=== PATIENT | male | born 1965 | race Caucasian/White ===

== ENCOUNTER → 2018-05-04 | Outpatient (CLI) | payer BC ==
--- NOTE | 2018-05-04 17:10 | KCIC ---
CT study of the maxillofacial bones without contrast Clinical indications: Acute recurrent sinusitis. Unable to breathe. Patient has been on antibiotics and steroids. TECHNIQUE: Noncontrast helical CT scanning of the paranasal sinuses was performed. Multiplanar 2-D reconstructions were generated. PQRS compliance Statement One or more of the following individualized dose reduction techniques were utilized for this study: 1. Automated exposure control 2. Adjustment of the mA and/or kV according to patient size 3. Use of iterative reconstruction technique FINDINGS: The maxillary and sphenoid and frontal and left ethmoid sinuses are clear. There is opacification of a solitary posterior right ethmoid air cell measuring 1.4 cm. No air-fluid levels are evident. No osteolytic process is seen. The infundibular canal is patent on both sides. There is moderate congestion of the middle and inferior turbinates on the left side and mild congestion of the middle and inferior turbinates on the right side. No polyps or soft tissue masses of the nasal passageway are seen. The adenoids are not abnormally thickened. IMPRESSION: Opacification of a solitary ethmoid air cell on the right side measuring 1.4 cm. No sinusitis is evident otherwise. Electronically signed by: Byron Lakhani MD (05/04/2018 5:07 PM) [id number]
== END | disposition home or self-care (01) ==
LOC: KCIC CT 11:09
PROVIDERS: ATTEND Otolaryngology
DX: J01.81 Other acute recurrent sinusitis (principal)
CPT/HCPCS: 70486